=== PATIENT | female | born 1945 | race Caucasian/White ===

== ENCOUNTER 2019-06-10 08:46 | Day surgery (SDC) | payer OTHER, MEDICARE ==
[2019-06-09 10:19] VITALS: BMI 29.2
[2019-06-10] MEDS ORDERED: LIDOCAINE HCL/PF 2% SDV 5ML VIAL ONE (09:41)
[2019-06-10] MEDS ORDERED: PROPOFOL 20 ML ONE ×3 (09:41)
[2019-06-10 11:07] VITALS: TEMP 97.4
[2019-06-10 11:08] VITALS: BP 125/73; PULSE 83
--- NOTE | 2019-06-11 15:16 | PATH ---
Surgical Pathology Report Patient Name: CANDIS MENDOZA [facility]. Rec. #: [id number] /Age/Gender: 1945 (Age: 74) / F Account: [id number] Location: [facility] Taken: 06/10/2019 Received: 06/10/2019 Reported: 06/11/2019 Physicians: Iris Shabazz M.D. Specimen(s) Received POLYP, RECTO SIGMOID COLON Clinical History Screening Postoperative diagnosis: Colon polyps, hemorrhoids Final Diagnosis RECTOSIGMOID COLON POLYP, BIOPSY: POLYPOID COLONIC MUCOSA WITH SURFACE HYPERPLASTIC CHANGE AND REACTIVE LYMPHOID AGGREGATE. Electronically Signed Yarelis Harp M.D. Gross Description Received in formalin, labeled "biopsy rectosigmoid colon" is a garcia, irregular portion of soft tissue measuring 0.2 cm. in greatest dimension. The specimen is submitted in toto in one cassette. /06/10/2019 saudi/06/10/2019
== END 2019-06-10 11:15 | disposition home or self-care (01) ==
LOC: FASU-ENDO 08:46
PROVIDERS: ATTEND Internal Medicine Gastroenterology
PROC: 0DBN8ZX Excision of Sigmoid Colon, Via Natural or Artificial Opening Endoscopic, Diagnostic (ICD-10-PCS; principal; 2019-06-10 10:17)
DX: Z12.11 Encounter for screening for malignant neoplasm of colon (principal); K63.9 Disease of intestine, unspecified; K64.2 Third degree hemorrhoids